=== PATIENT | male | born 1990 | race Caucasian/White ===

== ENCOUNTER 2021-01-28 08:14 | Emergency (ER) | payer BC, SELFPAY ==
--- NOTE | 2021-01-28 08:16 | ED.ALLEREA ---
HPI - Allergic Reaction General Chief complaint: Allergic Reaction Stated complaint: allergic reaction to spider bite Time Seen by Provider: 01/28/21 08:16 History of Present Illness HPI narrative: He developed a diffuse red rash a few days ago. He was seen at urgent care and started on steroids and benadryl. The rash has not gotten any better and since that time he noted a painful area under the left arm. the area is surrounded by a warm red, raised area with central punctate wound and reveles discoloration. He believes that he may have been bitten by a spider. No fever, chills, weakness, nausea, or other systemic symptoms. Related Data Allergies Allergy/AdvReac Type Severity Reaction Status Date / Time No Known Allergies Allergy Verified 01/28/21 08:22 Review of Systems Review of Systems: All systems reviewed & are unremarkable except as noted in HPI and below Constitutional: Constitutional: Denies chills and Denies fever(s) Eyes: Eyes: Reports no additional eye complaints ENT: Denies vertigo and Denies sore throat Cardiovascular: Cardiovascular: Denies chest pain Respiratory: Respiratory: Denies cough and Denies dyspnea Gastrointestinal: Gastrointestinal: Denies abdominal pain and Denies nausea Musculoskeletal: Musculoskeletal: Reports no additional musculoskeletal complaints Integumentary/Breasts: Skin/Breast: Reports rash Neurologic: Reports system reviewed and no additional complaints, except as documented PMFSH Social History Social History Smoking status: Never smoker Exam Const: General: healthy appearing, no acute distress and alert Nutritional Appearance: well nourished Orientation/consciousness: patient oriented x3 HENMT: Head: normal to inspection Eyes: Pupils: Equal, round and reactive pupils present Neck: Neck: normal visual inspection Resp: Effort & Inspection: normal respiratory effort Auscultation: clear to auscultation bilaterally Cardio: Rate: regular rate Rhythm: regular rhythm GI: GI Palp: Yes Soft to palpation and No Tenderness to palpation present (GI) Skin: Other: He appears to have 2 distinct rashes. He has a mildly erythematous fine papular rash on all extremities. He also has a large well demarcated area of erythema and induration centered around area the looks like possible early superficial necrosis. Neuro: General: patient oriented x3, moves all extremities and no focal motor deficits Extrem: General: normal to inspection Course Vital Signs Vital signs: Vital Signs Temperature 36.6 C 01/28/21 08:18 Pulse Rate 79 01/28/21 08:18 Respiratory Rate 18 01/28/21 08:18 Blood Pressure 145/88 H 01/28/21 08:18 Pulse Oximetry 99 01/28/21 08:18 Temperature 36.6 C 01/28/21 08:18 Pulse Rate 70 01/28/21 12:10 Respiratory Rate 16 01/28/21 12:10 Blood Pressure 151/90 H 01/28/21 12:10 Pulse Oximetry 100 01/28/21 12:10 MDM - Allergic Reaction MDM Narrative Medical decision making narrative: He appears well and does not need inpatient treatment. No fluctuant area to drain at this time. I am concerned that the wound may need to be debrided at some point if the central necrotic appearing area expands. Dr. Cheung will see him in clinic on Friday. I offered to continue steroids for the more diffuse allergic rash. He declined to continue the steroid. Differential Diagnosis Differential diagnosis: Likely adverse reaction to drug and other (scarlet fever, cellulitis, brown recluse bite, contact dermatitis) Medical Records Attestation: I reviewed the patient's medical records. Lab Data Attestation: I reviewed the patient's lab results. Result diagrams: 01/28/21 10:19 01/28/21 10:19 Labs: Lab Results 01/28/21 01/28/21 Range/Units 10:19 10:19 WBC 13.0 H (4.5-10.0) K/mm3 RBC 5.88 (4.6-6.20) M/mm3 Hgb 16.3 (14.0-18.0) g/dL Hct 49.2 (42.0-52.0
[2021-01-28 08:18] VITALS: BP 145/88; PULSE 79; RESP 18; TEMP 36.6; O2SAT 99
[2021-01-28 08:30] VITALS: BP 136/86; PULSE 82; RESP 20; O2SAT 97
[2021-01-28] MEDS: FAMOTIDINE 20 MG TABLET PO (08:33)
[2021-01-28] MEDS: diphenhydrAMINE HCl CAP 25 MG CAPSULE 50 MG PO (08:33)
[2021-01-28] MEDS: EPINEPHrine HCL INJ 1 MG/ML AMPUL 0.3 MG IM (08:35)
[2021-01-28 09:00] VITALS: BP 138/71; PULSE 84; RESP 21; O2SAT 96
[2021-01-28 10:00] VITALS: BP 145/87; PULSE 82; RESP 20; O2SAT 98
[2021-01-28 10:31] LABS: Basophils Percent Auto 0.3 % (0.2-1.2); Eosinophils Absolute Auto 0.4 K/mm3 (0-0.3); Eosinophils Percent Auto 2.9 % (0-4.4); Hematocrit 49.2 % (42.0-52.0); Hemoglobin 16.3 g/dL (14.0-18.0); Immature Granulocyte Percent A 1.5 % (0-0.5); Lymphocytes Absolute Auto 1.87 K/mm3 (0.9-3.2); Lymphocytes Percent Auto 14.4 % (18.3-44.2); Mean Corpuscular HGB Conc 33.1 g/dl (32-36); Mean Corpuscular Hemoglobin 27.7 pg (26-34); Mean Corpuscular Volume 83.7 fl (80-100); Mean Platelet Volume 9.5 fl (7.4-10.4); Monocytes Absolute Auto 0.8 K/mm3 (0.1-0.6); Monocytes Percent Auto 6.1 % (2.6-8.5); Neutrophils Absolute Auto 9.7 K/mm3 (1.3-6.7); Neutrophils Percent Auto 74.8 % (45.5-73.1); Platelet Count Result 215 k/mm3 (150-375); Red Blood Count 5.88 M/mm3 (4.6-6.20); Red Cell Distribution Width 13.2 % (11.5-14.5)
[2021-01-28 10:42] LABS: Anion Gap 9 mmol/L (8-16); Blood Urea Nitrogen 18 mg/dL (9-20); Calcium 9.2 mg/dL (8.4-10.2); Carbon Dioxide 33 mmol/L (22-30); Chloride 101 mmol/L (98-107); Estimated CRCL calculation 74 ml/min; Estimated Glomerular Filt Rate > 60; Glucose 97 mg/dL (75-110); Potassium 4.1 mmol/L (3.4-5.0); Sodium 143 mmol/L (137-145)
[2021-01-28 12:10] VITALS: BP 151/90; PULSE 70; RESP 16; O2SAT 100
== END 2021-01-28 12:10 | disposition home or self-care (01) ==
PROVIDERS: Emergency Provider Emergency Medicine
DX: T63.331A Toxic effect of venom of brown recluse spider, accidental (unintentional), initial encounter (principal); L03.114 Cellulitis of left upper limb
CPT/HCPCS: 36415; 80048; 85025; 87040; 87081; 87880; 96372; 99283; A9270; J0171